=== PATIENT | male | born 1965 | race Asian ===

== ENCOUNTER 2021-03-01 04:39 | Day surgery (SDC) | payer OTHER ==
[2021-02-27 14:30] VITALS: BMI 29.9
[2021-03-01 10:05] VITALS: TEMP 96.4
[2021-03-01 10:06] VITALS: PULSE 72
[2021-03-01 10:10] VITALS: BP 116/86
== END 2021-03-01 10:35 | disposition home or self-care (01) ==
LOC: JASU-ENDO 04:39
PROVIDERS: ATTEND Internal Medicine Gastroenterology
PROC: 0DBN8ZX Excision of Sigmoid Colon, Via Natural or Artificial Opening Endoscopic, Diagnostic (ICD-10-PCS; 2021-03-01)
PROC: 0DBP8ZX Excision of Rectum, Via Natural or Artificial Opening Endoscopic, Diagnostic (ICD-10-PCS; principal; 2021-03-01 09:00)
DX: Z12.11 Encounter for screening for malignant neoplasm of colon (principal); K63.5 Polyp of colon; K62.1 Rectal polyp; K57.30 Diverticulosis of large intestine without perforation or abscess without bleeding; K64.8 Other hemorrhoids
CPT/HCPCS: 82962; 88305-TC